=== PATIENT | male | born 1985 | race Caucasian/White ===

== ENCOUNTER 2021-04-18 17:05 | Emergency (ER) | payer OTHER ==
[2021-04-18 17:51] VITALS: BP 137/86; PULSE 69; RESP 18; TEMP 98.7
--- NOTE | 2021-04-18 19:18 | ED ---
General Adult HPI - General Chief complaint: Skin/Abscess/Foreign Body Stated complaint: poss infection Time Seen by Provider: 04/18/21 19:06 Source: patient, RN notes reviewed, old records reviewed Mode of arrival: ambulatory Limitations: no limitations - History of Present Illness Initial comments: 35-year-old male with pain and swelling on the back of his neck for the past one week. No fevers. He is a nondiabetic. He believes this started as a pimple. He has a dull ache associated with this swelling. - Related Data Previous Rx's Medication Instructions Recorded Cephalexin [Keflex] 500 mg PO QID #40 cap 04/18/21 Sulfamethox-Tmp 800-160Mg [Bactrim 1 tab PO Q12HR #20 tab 04/18/21 DS 800-160 mg] Allergies Allergy/AdvReac Type Severity Reaction Status Date / Time No Known Allergies Allergy Verified 04/18/21 17:50 Review of Systems ROS Statement: Those systems with pertinent positive or pertinent negative responses have been documented in the HPI. ROS Other: All systems not noted in ROS Statement are negative. Past Medical History Past Medical History: No Reported History History of Any Multi-Drug Resistant Organisms: None Reported Past Surgical History: No Surgical Hx Reported Past Psychological History: No Psychological Hx Reported Smoking Status: Never smoker Past Alcohol Use History: Occasional Past Drug Use History: Marijuana General Exam Limitations: no limitations General appearance: alert, in no apparent distress Head exam: Present: atraumatic, normocephalic Eye exam: Present: normal appearance, PERRL ENT exam: Present: normal exam Neck exam: Present: other (Patient has a 1.5 cm area of induration at the hairline, posterior neck. There is a small portion of central fluctuance less than half a centimeter.) Course Vital Signs 04/18/21 17:47 Temperature 98.7 F Pulse Rate 69 Respiratory 18 Rate Blood Pressure 137/86 O2 Sat by Pulse 99 Oximetry Procedures - Incision & Drainage Consent Obtained: verbal consent Indication: Abscess Site: neck I&D Cleaning Method: Chloroprep Sterile Field Used?: No Needle Aspiration Performed?: Yes Irrigation Performed?: No I&D Drainage Obtained: Pus, Blood Culture Obtained?: No Patient Tolerated Procedure: well Medical Decision Making - Medical Decision Making 35-year-old male who presented with small abscess on the back of the neck, consistent with a folliculitis there was a minimal amount of central fluctuance and a very superficial needle aspiration was performed with purulent drainage and some minimal bleeding. There is surrounding cellulitis and the patient is covered with antibiotics. He has a follow-up with dermatology in 3 days. Disposition Clinical Impression: Cellulitis, Folliculitis Disposition: HOME SELF-CARE Condition: Good Instructions (If sedation given, give patient instructions): Abscess (ED) Additional Instructions: Please follow up with the scrap collector as planned on . Prescriptions: Sulfamethox-Tmp 800-160Mg [Bactrim DS 800-160 mg] 1 tab PO Q12HR #20 tab Cephalexin [Keflex] 500 mg PO QID #40 cap Is patient prescribed a controlled substance at d/c from ED?: No Referrals: None,Stated [Primary Care Provider] - 1-2 days Time of Disposition: 19:14
== END 2021-04-18 19:31 | disposition home or self-care (01) ==
LOC: EC 17:05
DX: L03.221 Cellulitis of neck (principal); L73.9 Follicular disorder, unspecified
CPT/HCPCS: 10160; 99282